=== PATIENT | male | born 1950 | race American Indian/Alaskan Native ===

== ENCOUNTER 2020-01-04 09:52 | Outpatient (CLI) | payer MEDICARE ==
--- NOTE | 2020-01-04 11:36 | Cat Scan Report ---
CT ABDOMEN AND PELVIS WITHOUT CONTRAST HISTORY: C61 MALIGNANT NEOPLASM OF PROSTATE COMPARISON: None. TECHNIQUE: Axial CT images were obtained through the abdomen and pelvis without IV contrast. Sagittal and coronal reformatted images. All CT scans at this location are performed using CT dose reduction for ALARA by means of automated exposure control. FINDINGS: CT ABDOMEN: Lung Bases: Clear. Liver: No significant abnormality. Biliary: No significant abnormality. Spleen: No significant abnormality. Unenlarged. Pancreas: No significant abnormality. Adrenals: No significant abnormality. Kidneys: No significant abnormality. Lymphatics: No lymphadenopathy. Vasculature: No significant abnormality. Bowel/Peritoneum: No significant abnormality. No free air. No free fluid. The appendix is not confide ntly identified. CT PELVIS: : Prostatectomy changes are suspected. The bladder and distal ureters are unremarkable. Osseous Structures: Moderate thoracolumbar spondylosis. No suspicious blastic bony lesion is identifi ed. Additional Findings: None IMPRESSION: No significant abnormality. No evidence for metastatic disease to the abdomen or pelvis. Signer Name: Neftaly Borrego Jr, MD Signed: 01/04/2020 11:32 AM Workstation Name: [id number]
== END 2020-01-04 09:53 | disposition home or self-care (01) ==
LOC: CT 09:52
PROVIDERS: ATTEND Urology
DX: C61 Malignant neoplasm of prostate (principal); M47.815 Spondylosis without myelopathy or radiculopathy, thoracolumbar region
CPT/HCPCS: 74176

== ENCOUNTER 2020-11-30 07:15 | Outpatient (CLI) | payer MEDICARE ==
--- NOTE | 2020-11-30 08:15 | Cat Scan Report ---
CT ABDOMEN AND PELVIS WITHOUT CONTRAST HISTORY: MAIN COMPARISON: 01/04/2020 TECHNIQUE: Axial CT images were obtained through the abdomen and pelvis without IV contrast. Sagittal and coronal reformatted images. All CT scans at this location are performed using CT dose reduction for ALARA by means of automated exposure control. FINDINGS: CT ABDOMEN: Lung Bases: Clear. Liver: No significant abnormality. Biliary: No significant abnormality. Spleen: No significant abnormality. Unenlarged. Pancreas: No significant abnormality. Adrenals: No significant abnormality. Kidneys: Both kidneys are normal size, contour and position. There is mild perinephric stranding bila terally. A few tiny punctate renal calyceal stones are identified in both kidneys. No cystic disease, mass or ureteral stones. No hydronephrosis. Lymphatics: No lymphadenopathy. Vasculature: No significant abnormality. Bowel/Peritoneum: No significant abnormality. No free air. No free fluid. Normal appendix. CT PELVIS: : Stable prostatectomy changes and bilateral iliac node dissection. The bladder is mostly empty but unremarkable. Osseous Structures: Moderate degenerative changes are noted throughout the thoracolumbar spine. No espinoza spicious bony lesion or fracture is detected. Additional Findings: None IMPRESSION: No evidence for metastatic disease in the abdomen or pelvis on noncontrast CT. Punctate bilateral renal calyceal stones. Signer Name: Neftaly Borrego Jr, MD Signed: 11/30/2020 8:10 AM Workstation Name: [id number]
== END 2020-11-30 07:16 | disposition home or self-care (01) ==
LOC: CT 07:15
PROVIDERS: ATTEND Urology
DX: C61 Malignant neoplasm of prostate (principal); M47.815 Spondylosis without myelopathy or radiculopathy, thoracolumbar region; Z90.79 Acquired absence of other genital organ(s)
CPT/HCPCS: 74176